=== PATIENT | female | born 1950 | race Caucasian/White ===

== ENCOUNTER 2016-07-01 13:17 | Emergency (ER) | payer OTHER ==
--- NOTE | 2016-07-01 14:53 | RADIOLOGY REPORT ---
HISTORY: Injury. Pain. COMPARISON: None available. FINDINGS: 4 views of the shoulder obtained. Mild deformity left humeral head appears to represent old healed po sttraumatic deformity. No definite evidence for acute fracture or dislocation. Mild degenerative israel ges glenohumeral and acromioclavicular joints. IMPRESSION: No definite evidence for acute osseous abnormality. Final Electronic Signature: This report was electronically signed by Weston Rod MD, FACR on 2:51 PM. ana /
--- NOTE | 2016-07-01 14:57 | CT REPORT ---
HISTORY: Fall. Pain. Decreased range of motion. COMPARISON: 4 view left shoulder 07/01/2016. TECHNIQUE: CT of the left shoulder has been performed without contrast. Axial images obtained with two dimension al reformats performed. 3D volume rendering performed by technologist on a separate work station. This examination was performed using automated exposure control, adjustment of mA or kV according to patient size, and/or use of iterative reconstruction technique. FINDINGS: Degenerative change acromioclavicular and glenohumeral joints. No acute fracture. No dislocation. Probable old healed fracture deformity proximal humerus. Degenerative type cysts lateral and posterior lateral humeral head. Acromial morphology is type II. No osseous Bankart lesion or Hill-Sachs. IMPRESSION: Old healed fracture deformity proximal humerus. Degenerative changes glenohumeral and acromioclavicular joints. Final Electronic Signature: This report was electronically signed by Weston Rod MD, FACR on 2:54 PM. ana /
--- NOTE | 2016-07-01 15:24 | ER PHYSICIAN DOCUMENTATION ---
Physician Documentation [facility] Name:Parvin Valdivia Age:65 yrs Sex:Female :1950 Arrival Date:07/01/2016 Time:13:17 Bed6 Private MD: Alexander Garcia Disposition: 07/01/16 15:14 Discharged to Home/Self Care. Impression: Rotator Cuff Injury. - Condition is Fair. - Discharge Instructions: ROTATOR CUFF TEAR, SHOULDER IMMOBILIZER. - Medical Reconciliation form form. - Follow up: Fabian Blount MD; When: 1 week; Reason: Continuance of care. - Problem is new. - Symptoms are unchanged. HPI: 07/01 15:08 This 65 yrs old Female presents to ER via Private Vehicle with complaints of sc Shoulder Pain - LEFT. 15:08 The patient or guardian complains of an injury, pain. left scapular area. Context: The sc problem was sustained at home, resulted from a fall, The patient experiences decreased range of motion, The patient reports no obvious deformity. Onset: The symptom(s)/episode began/occurred just prior to arrival. Associated signs and symptoms: The patient has no apparent associated signs or symptoms. Historical: - Allergies: Levothyroxine Sodium; PENICILLINS; Pravachol; RONALD INHIBITORS; - Home Meds: 1. valsartan-hydrochlorothiazide 320-25 mg oral tab 1 tab once daily for Hypertension 2. Humalog Pen Sub-Q 3. Invokana 100 mg oral tab 1 tab once daily 4. Zocor 40 mg oral tab 1 tab once daily in the evening 5. Lantus 100 unit/mL subcutaneous crtg 6. Glucophage 1,000 mg oral tab 1 tab 2 times per day 7. Prilosec 20 mg oral cpDR 1 cap once daily for Gastroesophageal Reflux 8. venlafaxine 100 mg oral tab 2 tabs 9. Synthroid 50 mcg oral tab 1 tab once daily 10. Probiotic 10 billion cell oral cap 11. CoQ-10 30 mg oral cap 12. vitamin E 400 unit oral cap 13. aspirin 81 mg oral chew 1 tab once daily 14. Vitamin D3 2,000 unit oral cap 15. biotin 2,500 mcg oral tab 2 caps daily 16. multivitamin with minerals oral cap - PMHx: HEART MURMUR; alopecia; ALANIS; HYPERTENSION; posterior vitreous detatchment; CATARACTS; dry eye syndrome; insomnia; DEPRESSION; Hypercalcemia; Hyperlipidemia; vitamin D deficiency; DIABETES - NIDDM; adrenal adenoma; OBESITY; renal insufficiency; - PSHx: Left shoulder surgery; Tonsillectomy; adenoidectomy; trigger finger release; CARPAL TUNNEL REPAIR; - Tetanus: < 10 years. - Ebola Screening: : Patient negative for fever greater than or equal to 101.5 degrees Fahrenheit, and additional compatible Ebola Virus Disease symptoms. Patient denies exposure to infectious person. Patient denies travel to an Ebola-affected area in the 21 days before illness onset. . - Immunization history: Pneumococcal vaccine is up to date, Flu Vaccine < 1 year. - Social history: Smoking status: Patient states was never smoker of tobacco. ROS: 15:09 Constitutional: Negative for fever, chills, and weight loss. sc Eyes: Negative for injury, pain, redness, and discharge. Neck: Negative for injury, pain, and swelling. Cardiovascular: Negative for chest pain, palpitations, and edema. Back: Negative for injury and pain. Skin: Negative for injury, rash, and discoloration. 15:09 Neuro: Negative for headache, weakness, numbness, tingling, and seizure. sc 15:09 MS/extremity: Positive for injury or acute deformity, decreased range of motion, pain. Exam: Constitutional: This is a well developed, well nourished patient who is awake, alert, and in no acute distress. Neck: Trachea midline, no thyromegaly or masses palpated, and no cervical lymphadenopathy. Supple, full range of motion without nuchal rigidity, or vertebral point tenderness. No meningismus. Chest/axilla: Normal chest wall appearance and motion. Nontender with no deformity. No lesions are appreciated. Back: No spinal tenderness. No costovertebral tenderness. Full range of motion. 15:09 Skin: Warm, dry with normal turgor. Normal color with no rashes, no lesions, and no sc evidence of cellulitis. 15:09 Musculoskeletal/extremity: ROM: limited active range of motion due to pain, limited passive range of motion due to pain, Circulation is intact in all extremities. Sensation intact. Vital Signs: 13:32 BP 184 / 100; Pulse 99; Resp 20; Temp 98.7(O); Pulse Ox 96% on R/A; Weight 99.79 kg; lp Height 5 ft. 7 in. (170.18 cm); Pain 5/10; 15:15 BP 170 / 90; Pulse 86; Resp 16; Pulse Ox 96% on R/A; Pain 4/10; lp 13:32 Body Mass Index 34.46 (99.79 kg, 170.18 cm) lp MDM: 14:00 Patient medically screened. oh 15:10 Differential diagnosis: Anterior dislocation with fracture, Posterior dislocation with sc fracture, Posterior dislocation without fracture, humeral head fracture, glenoid fracture, tendonitis. Data reviewed: vital signs, nurses notes, radiologic studies, CT scan, plain films. Data reviewed: and as a result, I will discharge patient. Counseling: I had a detailed discussion with the patient and/or guardian regarding: the historical points, exam findings, and any diagnostic results supporting the discharge/admit diagnosis, radiology results, the need for outpatient follow up. 07/01 13:49 Order name: SHOULDER 2V; Complete Time: 14:13 [facility] 07/01 14:13 Interpretation: Abnormal. oh 07/01 14:46 Order name: CAT SCAN; UPPER EXTR W/O [id number] [facility] 07/01 14:46 Order name: CAT SCAN UPPER EXTR W/O [id number] [facility] 07/01 14:54 Order name: SHOULDER; 2V+ [place] [id number] [facility] 07/01 14:57 Order name: CAT SCAN; UPPER EXTR W/O [id number] [facility] 07/01 15:16 Order name: ORTHO: Ice Pack; Complete Time: 15:17 oh 07/01 15:16 Order name: ORTHO: Shoulder Immobilizer; Complete Time: 15:17 oh Dispensed Medications: No medications were administered Signatures: Michelle Roy, RN RN Alexander Gomez MD MD oh
--- NOTE | 2016-07-01 15:24 | ER NURSING DOCUMENTATION ---
Nurse's Notes [facility] Name:Parvin Valdivia Age:65 yrs Sex:Female :1950 Arrival Date:07/01/2016 Time:13:17 Bed6 Private MD: Diagnosis:Rotator Cuff Injury Presentation: 07/01 13:24 Presenting complaint: Patient states: Fall down stairs and shoulder pain. Transition of lp care: Home. 13:24 Method Of Arrival: Private Vehicle lp 13:24 Acuity: LEIGH 3 lp Triage Assessment: 13:33 General: Appears in no apparent distress, Behavior is crying. Pain: Complains of pain lp in left scapular area Pain does not radiate. EENT: No deficits noted. Neuro: No deficits noted. Cardiovascular: Heart tones S1 S2. Respiratory: Breath sounds are clear bilaterally. GI: Bowel sounds present X 4 quads. : No deficits noted. Derm: No deficits noted. Musculoskeletal: No deficits noted. Historical: - Allergies: Levothyroxine Sodium; PENICILLINS; Pravachol; RONALD INHIBITORS; - Home Meds: 1. valsartan-hydrochlorothiazide 320-25 mg oral tab 1 tab once daily for Hypertension 2. Humalog Pen Sub-Q 3. Invokana 100 mg oral tab 1 tab once daily 4. Zocor 40 mg oral tab 1 tab once daily in the evening 5. Lantus 100 unit/mL subcutaneous crtg 6. Glucophage 1,000 mg oral tab 1 tab 2 times per day 7. Prilosec 20 mg oral cpDR 1 cap once daily for Gastroesophageal Reflux 8. venlafaxine 100 mg oral tab 2 tabs 9. Synthroid 50 mcg oral tab 1 tab once daily 10. Probiotic 10 billion cell oral cap 11. CoQ-10 30 mg oral cap 12. vitamin E 400 unit oral cap 13. aspirin 81 mg oral chew 1 tab once daily 14. Vitamin D3 2,000 unit oral cap 15. biotin 2,500 mcg oral tab 2 caps daily 16. multivitamin with minerals oral cap - PMHx: HEART MURMUR; alopecia; ALANIS; HYPERTENSION; posterior vitreous detatchment; CATARACTS; dry eye syndrome; insomnia; DEPRESSION; Hypercalcemia; Hyperlipidemia; vitamin D deficiency; DIABETES - NIDDM; adrenal adenoma; OBESITY; renal insufficiency; - PSHx: Left shoulder surgery; Tonsillectomy; adenoidectomy; trigger finger release; CARPAL TUNNEL REPAIR; - Tetanus: < 10 years. - Ebola Screening: : Patient negative for fever greater than or equal to 101.5 degrees Fahrenheit, and additional compatible Ebola Virus Disease symptoms. Patient denies exposure to infectious person. Patient denies travel to an Ebola-affected area in the 21 days before illness onset. . - Immunization history: Pneumococcal vaccine is up to date, Flu Vaccine < 1 year. - Social history: Smoking status: Patient states was never smoker of tobacco. Screenin:54 Infectious Disease Risk None. Abuse screen: Denies threats or abuse. Denies injuries lp from another. Nutritional screening: No deficits noted. Assessment: 13:35 See Triage Assessment done by same RN. lp Vital Signs: 13:32 BP 184 / 100; Pulse 99; Resp 20; Temp 98.7(O); Pulse Ox 96% on R/A; Weight 99.79 kg; lp Height 5 ft. 7 in. (170.18 cm); Pain 5/10; 15:15 BP 170 / 90; Pulse 86; Resp 16; Pulse Ox 96% on R/A; Pain 4/10; lp 13:32 Body Mass Index 34.46 (99.79 kg, 170.18 cm) lp ED Course: 13:19 Patient arrived in ED. ds 13:24 Michelle Roy, RN is Primary Nurse. lp 13:24 Triage completed. lp 13:[address] Gomez notified. lp 13:38 Patient moved to radiology. hz 13:55 Valuables Remains with patient Patient has correct armband on for positive lp identification. Bed in low position. Call light in reach. 14:00 Alexander Gomez MD is Attending Physician. sc 15:10 Fabian Blount MD is Referral Physician. sc 15:16 Shoulder immobilizer applied on left shoulder. lp Administered Medications: No medications were administered Outcome: 15:14 Discharge ordered by . sc 15:16 Discharged to home lp 15:16 Condition: stable 15:16 Instructed on discharge instructions, follow up and referral plans. 15:23 Patient left the ED. lp 07/02 10:44 Discharge F/U Call: Spoke with: patient. other: Overall Care on a scale of 1-10 with ma 10 being the best care, you rate our care as: Other comments: States "you guts were excellent: Signatures: Liza Hoover, RN RN Michelle Perry RN RN lp ot, Silvia, Reg Reg Alexander Grissom MD MD mo Emily Montgomery
== END 2016-07-01 15:23 | disposition home or self-care (01) ==
LOC: ER 13:17
DX: S49.82XA Other specified injuries of left shoulder and upper arm, initial encounter (principal); W19.XXXA Unspecified fall, initial encounter; Y92.019 Unspecified place in single-family (private) house as the place of occurrence of the external cause; Y93.01 Activity, walking, marching and hiking; I10 Essential (primary) hypertension; E11.9 Type 2 diabetes mellitus without complications; Z79.4 Long term (current) use of insulin; Z79.82 Long term (current) use of aspirin; Z79.899 Other long term (current) drug therapy
CPT/HCPCS: 73200; 99283